=== PATIENT | male | born 1965 | race Caucasian/White ===

== ENCOUNTER 2020-12-05 13:15 | Emergency (ER) | payer BC ==
[~2020-12-05] VITALS: Ht 182.9 cm; Wt 109.3 kg
[2020-12-05 14:58] LABS: HEMOGLOBIN 16.1 gm/dl (14.0-17.5); RED BLOOD COUNT 5.07 M/UL (4.20-5.50); WHITE BLOOD COUNT 7.9 K/UL (4.5-11.0)
[2020-12-05 15:31] LABS: BUN/CREATININE RATIO 14 (0-10)
== END 2020-12-05 21:01 | disposition left against medical advice (07) ==
LOC: ER1 13:15 → CDU 16:11
PROVIDERS: Physician Assistant Medical
DX: R07.89 Other chest pain (principal); R11.0 Nausea; R06.02 Shortness of breath; R42 Dizziness and giddiness; R00.2 Palpitations; I10 Essential (primary) hypertension; I48.91 Unspecified atrial fibrillation; Z88.0 Allergy status to penicillin; Z88.8 Allergy status to other drugs, medicaments and biological substances; Z53.20 Procedure and treatment not carried out because of patient's decision for unspecified reasons; Z20.822 Contact with and (suspected) exposure to COVID-19
CPT/HCPCS: 71045; 80053; 82550; 82553; 83874; 83880; 84484; 85025; 93005; 99285; U0002